=== PATIENT | female | born 1980 | race Two or more races ===

== ENCOUNTER → 2016-07-19 | Outpatient (REF) | payer OTHER ==
[~2016-07-19] MED LIST: IBUP80TA PO; NORE0.353 PO; RANI15TA PO; STUATAB PO; TYLE650T30 PO
== END ==
LOC: M SFHCLERA 11:59
PROVIDERS: ATTEND Physician Assistant
DX: R50.9 Fever, unspecified (principal)